=== PATIENT | female | born 1995 | race Caucasian/White ===

== ENCOUNTER 2020-05-03 12:15 | Inpatient (IN) | payer OTHER ==
[~2020-05-03] VITALS: Ht 159.8 cm; Wt 65.3 kg
[2020-05-03 13:05] LABS: COVID AG,FIA SOURCE NASOPHARYNGEAL
[2020-05-03 13:09] LABS: EOSINOPHILS % (AUTO) 0 % (1.0-6.0); HEMATOCRIT 34.6 % (36-46); HEMOGLOBIN 11.4 g/dL (12.0-16.0); LYMPHOCYTES # (AUTO) 0.9 K/uL (1.0-4.8); LYMPHOCYTES % (AUTO) 4.7 % (22.0-44.0); MEAN CORPUSCULAR HEMOGLOBIN 28.3 pg (26.0-34.0); MEAN CORPUSCULAR VOLUME 86 fL (80-100); MONOCYTES # (AUTO) 1.3 K/uL (0.1-1.0); MONOCYTES % (AUTO) 6.5 % (2.0-9.0); NEUTROPHILS # (AUTO) 17.2 K/uL (1.8-7.7); PLATELET COUNT (AUTO) 224 K/uL (150-450); RED BLOOD CELL COUNT(AUTO) 4.04 MIL/uL (4.00-5.20)
[2020-05-03 13:15] LABS: NEUTROPHILS % (AUTO) 88.8 % (40.0-70.0)
[2020-05-03 13:26] LABS: ANION GAP 7 mmol/L (8-16); CALCIUM, TOTAL 8.6 mg/dL (8.8-10.5); CARBON DIOXIDE 27 mmol/L (22-29); CHLORIDE 103 mmol/L (98-107); CREATININE 0.85 mg/dL (0.60-1.30); GLOMERULAR FILTR. RATE CALC > 60 mL/min (>60); GLUCOSE,RANDOM 98 mg/dL (70-110); POTASSIUM 4.5 mmol/L (3.5-5.1); SODIUM SERUM 137 mmol/L (136-145); UREA NITROGEN, BLOOD 18 mg/dL (7-18)
[2020-05-03 13:37] LABS: ABG A-A DIFF O2 125.2 mmHg (10-20.0); ABG CARBOXYHEMOGLOBIN 0.3 % (0.0-3.0); ABG HCO3 25.2 mmol/L (22.0-26.0); ABG METHEMOGLOBIN 0.1 % (0.0-1.5); ABG OXYGEN CONTENT 15.2 mL/dL (15.0-23.0); ABG OXYGEN SATURATION 89.8 % (95.0-98.0); ABG OXYHEMOGLOBIN 89.4 % (94.0-100.0); ABG PCO2 40 mmHg (35-45); ABG PH 7.422 (7.350-7.450); ABG TOTAL HEMOGLOBIN 12.1 G/dL (12.0-18.0); PO2, ARTERIAL BG 56.3 mmHg (80.0-100.0); SOURCE, BLOOD GAS ARTERIAL; TEMPERATURE, FAHRENHEIT, BG 98.6 FAHREN (96.0-98.6)
[2020-05-03 13:38] LABS: O2 DEVICE,BLOOD GAS CANNULA (ROOM AIR); SITE, BLOOD GAS RT RADIAL
[2020-05-03 13:38] LABS: ALANINE AMINOTRANSFERASE 23 U/L (12-78); ALBUMIN 3.2 g/dL (3.4-5.0); ALKALINE PHOSPHATASE 83 U/L (46-116); ASPARTATE AMINOTRANSFERASE 16 U/L (15-37); BILIRUBIN,TOTAL 0.3 mg/dL (0.1-1.0); C-REACTIVE PROTEIN QUANT 3.63 mg/dL (0.00-0.30); HCG,QUANTITATIVE 1 mIU/mL (0-6); LACTATE DEHYDROGENASE 255 U/L (81-234)
[2020-05-03 13:52] LABS: INFLUENZA TYPE A NEGATIVE FOR TYPE A (NEGATIVE); INFLUENZA TYPE B NEGATIVE FOR TYPE B (NEGATIVE)
[2020-05-03] MEDS ORDERED: DEXAMETHASONE SOD PHOS 4 MG/ML 5 ML VIAL IVP ONE (14:45)
[2020-05-03] MEDS ORDERED: AZITHROMYCIN 500 MG/NS 250 ML IV ONE (14:45)
[2020-05-03] MEDS ORDERED: ALBUTEROL SULFATE HFA 90 MCG/PUFF 8 GM INHALER IH ONE (14:45)
[2020-05-03] MEDS ORDERED: 0.9% SODIUM CHLORIDE 10 ML SYRINGE IVP PRN (15:15)
[2020-05-03] MEDS ORDERED: ONDANSETRON HCL 4 MG/2 ML VIAL IVP PRN ×2 (15:15→15:30)
[2020-05-03] MEDS ORDERED: ACETAMINOPHEN 325 MG TABLET PO PRN ×2 (15:15→15:30)
[2020-05-03] MEDS ORDERED: HEPARIN SODIUM,PORCINE 5,000 UNITS/ML VIAL IVP PRN (15:30)
[2020-05-03] MEDS ORDERED: BISACODYL 10 MG RECTAL RECTAL SUPPOSITORY PR PRN (15:30)
[2020-05-03] MEDS ORDERED: HYDROCODONE/ACETAMINOPHEN 5-325 MG TABLET PO PRN (15:30)
[2020-05-03] MEDS ORDERED: MAGNESIUM HYDROXIDE SUSPENSION 30 ML UDCUP PO PRN (15:30)
[2020-05-03] MEDS ORDERED: REMDESIVIR 200 MG in SODIUM CHLORIDE 0.9% 250 ML IV ONE (15:30)
[2020-05-03 16:19] LABS: BASOPHILS % (AUTO) 0.1 % (0.0-2.0); EOSINOPHILS % (AUTO) 0 % (1.0-6.0); HEMATOCRIT 32.4 % (36-46); HEMOGLOBIN 10.7 g/dL (12.0-16.0); LYMPHOCYTES # (AUTO) 0.8 K/uL (1.0-4.8); LYMPHOCYTES % (AUTO) 5.2 % (22.0-44.0); MEAN CORPUSCULAR HEMOGLOBIN 28.3 pg (26.0-34.0); MEAN CORPUSCULAR VOLUME 86 fL (80-100); MONOCYTES # (AUTO) 0.4 K/uL (0.1-1.0); MONOCYTES % (AUTO) 2.4 % (2.0-9.0); NEUTROPHILS # (AUTO) 14.7 K/uL (1.8-7.7); NEUTROPHILS % (AUTO) 92.3 % (40.0-70.0); PLATELET COUNT (AUTO) 211 K/uL (150-450); RED BLOOD CELL COUNT(AUTO) 3.78 MIL/uL (4.00-5.20)
[2020-05-03 16:36] LABS: PROTHROMBIN TIME 10.9 SEC (9.4-11.6)
[2020-05-03 17:05] LABS: C-REACTIVE PROTEIN QUANT 3.51 mg/dL (0.00-0.30)
[2020-05-03] MEDS ORDERED: OXYGEN THERAPY IH SCH (20:00)
[2020-05-03] MEDS: DOCUSATE SODIUM 100 MG CAPSULE PO SCH (21:37)
[2020-05-04] MEDS: MORPHINE SULFATE 2 MG/ML SYRINGE IVP PRN (01:54)
[2020-05-04 02:27] LABS: ABG A-A DIFF O2 496.3 mmHg (10-20.0); ABG CARBOXYHEMOGLOBIN 0.3 % (0.0-3.0); ABG HCO3 25.8 mmol/L (22.0-26.0); ABG METHEMOGLOBIN 0.3 % (0.0-1.5); ABG OXYGEN CONTENT 16.6 mL/dL (15.0-23.0); ABG OXYHEMOGLOBIN 98.4 % (94.0-100.0); ABG PCO2 32 mmHg (35-45); ABG PH 7.499 (7.350-7.450); ABG TOTAL HEMOGLOBIN 11.7 G/dL (12.0-18.0); PO2, ARTERIAL BG 184.9 mmHg (80.0-100.0); SOURCE, BLOOD GAS ARTERIAL; TEMPERATURE, FAHRENHEIT, BG 98.6 FAHREN (96.0-98.6)
[2020-05-04 02:28] LABS: O2 DEVICE,BLOOD GAS HFNC (ROOM AIR); SITE, BLOOD GAS LFT RADIAL
[2020-05-04] MEDS: HEPARIN SODIUM 25000 UNITS/D5W 250 ML IV PRN (03:58)
[2020-05-04 05:04] LABS: BASOPHILS % (AUTO) 0.1 % (0.0-2.0); EOSINOPHILS % (AUTO) 0 % (1.0-6.0); HEMATOCRIT 32.9 % (36-46); HEMOGLOBIN 10.7 g/dL (12.0-16.0); LYMPHOCYTES # (AUTO) 1.2 K/uL (1.0-4.8); LYMPHOCYTES % (AUTO) 9.1 % (22.0-44.0); MEAN CORPUSCULAR HGB CONC 32.5 G/dL (31.0-37.0); MEAN CORPUSCULAR VOLUME 86 fL (80-100); MONOCYTES # (AUTO) 0.9 K/uL (0.1-1.0); NEUTROPHILS % (AUTO) 83.8 % (40.0-70.0); PLATELET COUNT (AUTO) 211 K/uL (150-450); RED BLOOD CELL COUNT(AUTO) 3.82 MIL/uL (4.00-5.20); RED CELL DISTRIBUTION WIDTH 14.3 % (11.5-14.5)
[2020-05-04 05:17] LABS: D-DIMER 0.78 mg/L FEU (0.00-0.50)
[2020-05-04 05:56] LABS: ALANINE AMINOTRANSFERASE 21 U/L (12-78); ALBUMIN 2.8 g/dL (3.4-5.0); ALKALINE PHOSPHATASE 75 U/L (46-116); ANION GAP 6 mmol/L (8-16); ASPARTATE AMINOTRANSFERASE 16 U/L (15-37); BILIRUBIN,TOTAL 0.3 mg/dL (0.1-1.0); C-REACTIVE PROTEIN QUANT 4.27 mg/dL (0.00-0.30); CALCIUM, TOTAL 8.5 mg/dL (8.8-10.5); CARBON DIOXIDE 27 mmol/L (22-29); CHLORIDE 103 mmol/L (98-107); CREATININE 0.71 mg/dL (0.60-1.30); FERRITIN 204 ng/mL (8-252); GLOMERULAR FILTR. RATE CALC > 60 mL/min (>60); GLUCOSE,RANDOM 137 mg/dL (70-110); LACTATE DEHYDROGENASE 238 U/L (81-234); POTASSIUM 4.3 mmol/L (3.5-5.1); SODIUM SERUM 136 mmol/L (136-145); TOTAL PROTEIN, SERUM 7.2 g/dL (6.4-8.2); UREA NITROGEN, BLOOD 23 mg/dL (7-18)
[2020-05-04] MEDS: DOCUSATE SODIUM 100 MG CAPSULE PO SCH ×2 (09:00→22:52)
[2020-05-04] MEDS ORDERED: PANTOPRAZOLE SODIUM 40 MG DR TABLET PO SCH (09:00)
[2020-05-04] MEDS: DEXAMETHASONE SOD PHOS 4 MG/ML VIAL IVP SCH (09:40)
[2020-05-04 12:00] VITALS: BP 111/69
[2020-05-04 14:43] VITALS: BP 112/73
[2020-05-04 17:55] VITALS: BP 117/77
[2020-05-04 20:45] VITALS: BP 114/69
[2020-05-04] MEDS: REMDESIVIR 100 MG in SODIUM CHLORIDE 0.9% 250 ML IV SCH (22:51)
[2020-05-05 01:10] VITALS: BP 107/67
[2020-05-05] MEDS: HEPARIN SODIUM 25000 UNITS/D5W 250 ML IV PRN (03:43)
[2020-05-05] MEDS: MORPHINE SULFATE 2 MG/ML SYRINGE IVP PRN (03:49)
[2020-05-05 04:32] VITALS: BP 102/56
[2020-05-05 07:57] VITALS: BP 97/58
[2020-05-05 07:58] LABS: D-DIMER 0.93 mg/L FEU (0.00-0.50)
[2020-05-05] MEDS: DOCUSATE SODIUM 100 MG CAPSULE PO SCH ×2 (08:45→21:48)
[2020-05-05] MEDS: FAMOTIDINE 20 MG TABLET PO SCH ×2 (08:45→21:49)
[2020-05-05] MEDS: CHOLECALCIFEROL (VIT D3) 1,000 UNITS [25 MCG] TABLET PO SCH (08:45)
[2020-05-05] MEDS: ZINC SULFATE 220 MG CAPSULE PO SCH ×2 (08:45→21:49)
[2020-05-05] MEDS: DEXAMETHASONE SOD PHOS 4 MG/ML VIAL IVP SCH (08:45)
[2020-05-05] MEDS: ASCORBIC ACID 500 MG TABLET PO SCH ×2 (08:45→21:48)
[2020-05-05 09:08] LABS: ALANINE AMINOTRANSFERASE 57 U/L (12-78); ALBUMIN 2.5 g/dL (3.4-5.0); ALKALINE PHOSPHATASE 69 U/L (46-116); ANION GAP 9 mmol/L (8-16); ASPARTATE AMINOTRANSFERASE 27 U/L (15-37); BILIRUBIN,TOTAL 0.3 mg/dL (0.1-1.0); C-REACTIVE PROTEIN QUANT 2.03 mg/dL (0.00-0.30); CALCIUM, TOTAL 8.1 mg/dL (8.8-10.5); CARBON DIOXIDE 25 mmol/L (22-29); CHLORIDE 103 mmol/L (98-107); CREATININE 0.67 mg/dL (0.60-1.30); FERRITIN 254 ng/mL (8-252); GLOMERULAR FILTR. RATE CALC > 60 mL/min (>60); GLUCOSE,RANDOM 100 mg/dL (70-110); LACTATE DEHYDROGENASE 245 U/L (81-234); POTASSIUM 4.1 mmol/L (3.5-5.1); SODIUM SERUM 137 mmol/L (136-145); TOTAL PROTEIN, SERUM 6.7 g/dL (6.4-8.2); UREA NITROGEN, BLOOD 29 mg/dL (7-18)
[2020-05-05 12:19] VITALS: BP 90/51
[2020-05-05 16:00] VITALS: BP 90/59
[2020-05-05] MEDS ORDERED: SODIUM CHLORIDE 0.9% 250 ML IV ONE (17:28)
[2020-05-05] MEDS: REMDESIVIR 100 MG in SODIUM CHLORIDE 0.9% 250 ML IV SCH (18:12)
[2020-05-05 19:34] VITALS: BP 96/54
[2020-05-06 00:12] VITALS: BP 109/60
[2020-05-06] MEDS: ZOLPIDEM TARTRATE 5 MG TABLET PO PRN (00:23)
[2020-05-06 04:12] VITALS: BP 108/60
[2020-05-06 08:19] VITALS: BP 89/45
[2020-05-06 08:31] LABS: D-DIMER 0.78 mg/L FEU (0.00-0.50)
[2020-05-06 08:42] LABS: ALANINE AMINOTRANSFERASE 52 U/L (12-78); ALBUMIN 2.5 g/dL (3.4-5.0); ALKALINE PHOSPHATASE 68 U/L (46-116); ANION GAP 10 mmol/L (8-16); ASPARTATE AMINOTRANSFERASE 24 U/L (15-37); BILIRUBIN,TOTAL 0.3 mg/dL (0.1-1.0); C-REACTIVE PROTEIN QUANT 1.57 mg/dL (0.00-0.30); CALCIUM, TOTAL 8.1 mg/dL (8.8-10.5); CARBON DIOXIDE 27 mmol/L (22-29); CHLORIDE 103 mmol/L (98-107); CREATININE 0.72 mg/dL (0.60-1.30); FERRITIN 267 ng/mL (8-252); GLOMERULAR FILTR. RATE CALC > 60 mL/min (>60); GLUCOSE,RANDOM 82 mg/dL (70-110); LACTATE DEHYDROGENASE 244 U/L (81-234); POTASSIUM 3.9 mmol/L (3.5-5.1); SODIUM SERUM 140 mmol/L (136-145); TOTAL PROTEIN, SERUM 6.5 g/dL (6.4-8.2); UREA NITROGEN, BLOOD 22 mg/dL (7-18)
[2020-05-06] MEDS: FAMOTIDINE 20 MG TABLET PO SCH ×2 (08:51→20:00)
[2020-05-06] MEDS: ZINC SULFATE 220 MG CAPSULE PO SCH ×2 (08:51→20:01)
[2020-05-06] MEDS: DOCUSATE SODIUM 100 MG CAPSULE PO SCH ×2 (08:52→20:01)
[2020-05-06] MEDS: CHOLECALCIFEROL (VIT D3) 1,000 UNITS [25 MCG] TABLET PO SCH (08:52)
[2020-05-06] MEDS: DEXAMETHASONE SOD PHOS 4 MG/ML VIAL IVP SCH (08:52)
[2020-05-06] MEDS: ASCORBIC ACID 500 MG TABLET PO SCH ×2 (08:52→20:01)
[2020-05-06] MEDS: HEPARIN SODIUM 25000 UNITS/D5W 250 ML IV PRN (10:38)
[2020-05-06 11:39] VITALS: BP 110/50
[2020-05-06 16:16] VITALS: BP 100/62
[2020-05-06] MEDS: REMDESIVIR 100 MG in SODIUM CHLORIDE 0.9% 250 ML IV SCH (18:00)
[2020-05-06 20:25] VITALS: BP 95/60
[2020-05-07] VITALS (7 sets, daily range): BP systolic 95–108; BP diastolic 52–71
[2020-05-07] MEDS: ZOLPIDEM TARTRATE 5 MG TABLET PO PRN (01:24)
[2020-05-07] MEDS: HEPARIN SODIUM 25000 UNITS/D5W 250 ML IV PRN (04:52)
[2020-05-07 07:07] LABS: D-DIMER 0.68 mg/L FEU (0.00-0.50)
[2020-05-07 07:32] LABS: ALANINE AMINOTRANSFERASE 42 U/L (12-78); ALBUMIN 2.6 g/dL (3.4-5.0); ANION GAP 4 mmol/L (8-16); ASPARTATE AMINOTRANSFERASE 16 U/L (15-37); C-REACTIVE PROTEIN QUANT 2.33 mg/dL (0.00-0.30); CALCIUM, TOTAL 8.1 mg/dL (8.8-10.5); CARBON DIOXIDE 29 mmol/L (22-29); CHLORIDE 104 mmol/L (98-107); CREATININE 0.72 mg/dL (0.60-1.30); FERRITIN 230 ng/mL (8-252); GLOMERULAR FILTR. RATE CALC > 60 mL/min (>60); GLUCOSE,RANDOM 81 mg/dL (70-110); LACTATE DEHYDROGENASE 280 U/L (81-234); POTASSIUM 3.8 mmol/L (3.5-5.1); SODIUM SERUM 137 mmol/L (136-145); TOTAL PROTEIN, SERUM 6.6 g/dL (6.4-8.2); UREA NITROGEN, BLOOD 20 mg/dL (7-18)
[2020-05-07 08:13] LABS: ALKALINE PHOSPHATASE 71 U/L (46-116); BILIRUBIN,TOTAL 0.3 mg/dL (0.1-1.0)
[2020-05-07] MEDS: DOCUSATE SODIUM 100 MG CAPSULE PO SCH ×2 (08:15→20:16)
[2020-05-07] MEDS: ZINC SULFATE 220 MG CAPSULE PO SCH ×2 (08:15→20:16)
[2020-05-07] MEDS: FAMOTIDINE 20 MG TABLET PO SCH ×2 (08:16→20:16)
[2020-05-07] MEDS: CHOLECALCIFEROL (VIT D3) 1,000 UNITS [25 MCG] TABLET PO SCH (08:16)
[2020-05-07] MEDS: ASCORBIC ACID 500 MG TABLET PO SCH ×2 (08:16→20:16)
[2020-05-07] MEDS: DEXAMETHASONE SOD PHOS 4 MG/ML VIAL IVP SCH (08:17)
[2020-05-07] MEDS ORDERED: SODIUM CHLORIDE 0.9% 250 ML IV ONE (17:13)
[2020-05-07] MEDS: REMDESIVIR 100 MG in SODIUM CHLORIDE 0.9% 250 ML IV SCH (18:24)
[2020-05-07] MEDS: MELATONIN 5 MG TABLET PO SCH (21:30)
[2020-05-08 03:57] VITALS: BP 105/51
[2020-05-08] MEDS: HEPARIN SODIUM 25000 UNITS/D5W 250 ML IV PRN (06:42)
[2020-05-08] MEDS: DEXAMETHASONE SOD PHOS 4 MG/ML VIAL IVP SCH (08:18)
[2020-05-08] MEDS: CHOLECALCIFEROL (VIT D3) 1,000 UNITS [25 MCG] TABLET PO SCH (08:18)
[2020-05-08] MEDS: FAMOTIDINE 20 MG TABLET PO SCH ×2 (08:18→19:48)
[2020-05-08] MEDS: ASCORBIC ACID 500 MG TABLET PO SCH ×2 (08:18→19:48)
[2020-05-08] MEDS: ZINC SULFATE 220 MG CAPSULE PO SCH ×2 (08:18→19:48)
[2020-05-08] MEDS: DOCUSATE SODIUM 100 MG CAPSULE PO SCH ×2 (08:18→19:48)
[2020-05-08 08:29] VITALS: BP 98/48
[2020-05-08 13:58] VITALS: BP 117/72
[2020-05-08 16:19] VITALS: BP 97/53
[2020-05-08 19:40] VITALS: BP 96/45
[2020-05-08] MEDS: MELATONIN 5 MG TABLET PO SCH (19:48)
[2020-05-09] VITALS (7 sets, daily range): BP systolic 93–129; BP diastolic 45–60
[2020-05-09] MEDS: LORazepam 1 MG TABLET PO PRN ×2 (01:26→20:08)
[2020-05-09] MEDS: DOCUSATE SODIUM 100 MG CAPSULE PO SCH ×2 (08:39→20:09)
[2020-05-09] MEDS: DEXAMETHASONE SOD PHOS 4 MG/ML VIAL IVP SCH (08:39)
[2020-05-09] MEDS: FAMOTIDINE 20 MG TABLET PO SCH ×2 (08:39→20:08)
[2020-05-09] MEDS: ZINC SULFATE 220 MG CAPSULE PO SCH ×2 (08:40→20:08)
[2020-05-09] MEDS: CHOLECALCIFEROL (VIT D3) 1,000 UNITS [25 MCG] TABLET PO SCH (08:40)
[2020-05-09] MEDS: ASCORBIC ACID 500 MG TABLET PO SCH ×2 (08:40→20:08)
[2020-05-09] MEDS: HEPARIN SODIUM 25000 UNITS/D5W 250 ML IV PRN (16:08)
[2020-05-09] MEDS: MELATONIN 5 MG TABLET PO SCH (20:08)
[2020-05-10 04:11] VITALS: BP 105/58
[2020-05-10 07:41] LABS: BASOPHILS % (AUTO) 0.3 % (0.0-2.0); EOSINOPHILS % (AUTO) 3.8 % (1.0-6.0); HEMOGLOBIN 12.2 g/dL (12.0-16.0); LYMPHOCYTES # (AUTO) 2.6 K/uL (1.0-4.8); LYMPHOCYTES % (AUTO) 17.2 % (22.0-44.0); MEAN CORPUSCULAR HEMOGLOBIN 28.3 pg (26.0-34.0); MEAN CORPUSCULAR VOLUME 86 fL (80-100); MONOCYTES # (AUTO) 1.1 K/uL (0.1-1.0); MONOCYTES % (AUTO) 7.1 % (2.0-9.0); NEUTROPHILS # (AUTO) 10.6 K/uL (1.8-7.7); NEUTROPHILS % (AUTO) 71.6 % (40.0-70.0); PLATELET COUNT (AUTO) 330 K/uL (150-450); RED BLOOD CELL COUNT(AUTO) 4.33 MIL/uL (4.00-5.20)
[2020-05-10 07:51] VITALS: BP 98/57
[2020-05-10] MEDS: ZINC SULFATE 220 MG CAPSULE PO SCH ×2 (08:07→21:15)
[2020-05-10] MEDS: CHOLECALCIFEROL (VIT D3) 1,000 UNITS [25 MCG] TABLET PO SCH (08:07)
[2020-05-10] MEDS: DEXAMETHASONE SOD PHOS 4 MG/ML VIAL IVP SCH (08:07)
[2020-05-10] MEDS: FAMOTIDINE 20 MG TABLET PO SCH ×2 (08:07→21:15)
[2020-05-10] MEDS: DOCUSATE SODIUM 100 MG CAPSULE PO SCH ×2 (08:07→21:15)
[2020-05-10] MEDS: ASCORBIC ACID 500 MG TABLET PO SCH ×2 (08:07→21:15)
[2020-05-10 08:21] LABS: ALANINE AMINOTRANSFERASE 34 U/L (12-78); ALBUMIN 2.8 g/dL (3.4-5.0); ALKALINE PHOSPHATASE 85 U/L (46-116); ANION GAP 9 mmol/L (8-16); ASPARTATE AMINOTRANSFERASE 16 U/L (15-37); BILIRUBIN,TOTAL 0.6 mg/dL (0.1-1.0); C-REACTIVE PROTEIN QUANT 1.54 mg/dL (0.00-0.30); CALCIUM, TOTAL 8.7 mg/dL (8.8-10.5); CARBON DIOXIDE 24 mmol/L (22-29); CHLORIDE 100 mmol/L (98-107); CREATININE 0.82 mg/dL (0.60-1.30); GLOMERULAR FILTR. RATE CALC > 60 mL/min (>60); GLUCOSE,RANDOM 79 mg/dL (70-110); POTASSIUM 4.2 mmol/L (3.5-5.1); SODIUM SERUM 133 mmol/L (136-145); TOTAL PROTEIN, SERUM 6.9 g/dL (6.4-8.2); UREA NITROGEN, BLOOD 20 mg/dL (7-18)
[2020-05-10 11:00] LABS: ABG A-A DIFF O2 216.4 mmHg (10-20.0); ABG BASE EXCESS -1.6 mmol/L (-2.0-3.0); ABG HCO3 23.6 mmol/L (22.0-26.0); ABG METHEMOGLOBIN 0.1 % (0.0-1.5); ABG OXYGEN CONTENT 16.6 mL/dL (15.0-23.0); ABG OXYGEN SATURATION 92.4 % (95.0-98.0); ABG OXYHEMOGLOBIN 92.3 % (94.0-100.0); ABG PCO2 33 mmHg (35-45); ABG PH 7.455 (7.350-7.450); ABG TOTAL HEMOGLOBIN 12.8 G/dL (12.0-18.0); PO2, ARTERIAL BG 60.5 mmHg (80.0-100.0); SOURCE, BLOOD GAS ARTERIAL
[2020-05-10 11:24] VITALS: BP 99/54
[2020-05-10 12:18] LABS: O2 DEVICE,BLOOD GAS CANNULA (ROOM AIR); SITE, BLOOD GAS RT BRACHIAL
[2020-05-10 16:31] VITALS: BP 97/59
[2020-05-10 18:16] LABS: D-DIMER 0.54 mg/L FEU (0.00-0.50)
[2020-05-10 19:23] LABS: FERRITIN 193 ng/mL (8-252)
[2020-05-10 20:10] VITALS: BP 112/58
[2020-05-10] MEDS: HEPARIN SODIUM,PORCINE 5,000 UNITS/ML VIAL IVP PRN (21:13)
[2020-05-10] MEDS: MELATONIN 5 MG TABLET PO SCH (21:15)
[2020-05-10] MEDS: LORazepam 1 MG TABLET PO PRN (21:16)
[2020-05-11 00:39] VITALS: BP 95/59
[2020-05-11] MEDS: HEPARIN SODIUM 25000 UNITS/D5W 250 ML IV PRN (03:05)
[2020-05-11 05:05] VITALS: BP 97/62
[2020-05-11 07:29] VITALS: BP 96/52
[2020-05-11] MEDS: ZINC SULFATE 220 MG CAPSULE PO SCH ×2 (08:18→20:22)
[2020-05-11] MEDS: DOCUSATE SODIUM 100 MG CAPSULE PO SCH ×2 (08:19→20:22)
[2020-05-11] MEDS: CHOLECALCIFEROL (VIT D3) 1,000 UNITS [25 MCG] TABLET PO SCH (08:19)
[2020-05-11] MEDS: ASCORBIC ACID 500 MG TABLET PO SCH ×2 (08:19→20:22)
[2020-05-11] MEDS: FAMOTIDINE 20 MG TABLET PO SCH ×2 (08:20→20:22)
[2020-05-11] MEDS: DEXAMETHASONE SOD PHOS 4 MG/ML VIAL IVP SCH (08:20)
[2020-05-11 10:53] VITALS: BP 101/55
[2020-05-11] MEDS: FLUTICASONE PROPIONATE 50 MCG/SPRAY 16 GM NASAL SPRAY NASAL SCH ×2 (13:48→20:23)
[2020-05-11 16:06] VITALS: BP 121/64
[2020-05-11 20:00] VITALS: BP 122/60
[2020-05-11] MEDS: MELATONIN 5 MG TABLET PO SCH (20:22)
[2020-05-12] VITALS (7 sets, daily range): BP systolic 102–123; BP diastolic 52–72
[2020-05-12] MEDS: CHOLECALCIFEROL (VIT D3) 1,000 UNITS [25 MCG] TABLET PO SCH (07:36)
[2020-05-12] MEDS: ASCORBIC ACID 500 MG TABLET PO SCH ×2 (07:37→20:10)
[2020-05-12] MEDS: DEXAMETHASONE SOD PHOS 4 MG/ML VIAL IVP SCH (07:37)
[2020-05-12] MEDS: DOCUSATE SODIUM 100 MG CAPSULE PO SCH ×2 (07:37→20:10)
[2020-05-12] MEDS: FAMOTIDINE 20 MG TABLET PO SCH ×2 (07:37→20:10)
[2020-05-12] MEDS: FLUTICASONE PROPIONATE 50 MCG/SPRAY 16 GM NASAL SPRAY NASAL SCH ×2 (07:38→20:55)
[2020-05-12] MEDS: ZINC SULFATE 220 MG CAPSULE PO SCH ×2 (07:40→20:10)
[2020-05-12] MEDS: HEPARIN SODIUM 25000 UNITS/D5W 250 ML IV PRN (07:41)
[2020-05-12] MEDS: LORazepam 1 MG TABLET PO PRN (20:10)
[2020-05-12] MEDS: MELATONIN 5 MG TABLET PO SCH (20:10)
[2020-05-13] MEDS ORDERED: MAGNESIUM OXIDE 400 MG TABLET PO PRN (01:15)
[2020-05-13] MEDS ORDERED: MAGNESIUM SULFATE 2 GM/WATER 50 ML IV PRN (01:15)
[2020-05-13] MEDS ORDERED: MAGNESIUM SULFATE 4 GM/WATER 100 ML IV PRN (01:15)
[2020-05-13 05:23] VITALS: BP 106/56
[2020-05-13 06:52] LABS: ALBUMIN 2.8 g/dL (3.4-5.0); MAGNESIUM 1.9 mg/dL (1.80-2.40)
[2020-05-13 07:36] VITALS: BP 99/51
[2020-05-13] MEDS: DOCUSATE SODIUM 100 MG CAPSULE PO SCH ×3 (07:40→19:49)
[2020-05-13] MEDS: ASCORBIC ACID 500 MG TABLET PO SCH ×2 (07:40→19:49)
[2020-05-13] MEDS: CHOLECALCIFEROL (VIT D3) 1,000 UNITS [25 MCG] TABLET PO SCH (07:40)
[2020-05-13] MEDS: ZINC SULFATE 220 MG CAPSULE PO SCH ×2 (07:40→19:49)
[2020-05-13] MEDS: FAMOTIDINE 20 MG TABLET PO SCH ×2 (07:41→19:49)
[2020-05-13] MEDS: DEXAMETHASONE SOD PHOS 4 MG/ML VIAL IVP SCH (07:41)
[2020-05-13] MEDS: FLUTICASONE PROPIONATE 50 MCG/SPRAY 16 GM NASAL SPRAY NASAL SCH ×2 (07:54→19:51)
[2020-05-13 11:18] VITALS: BP 97/55
[2020-05-13 13:03] LABS: THYROID STIMULATING HORMONE 0.44 uIU/mL (0.36-3.74)
[2020-05-13 16:13] VITALS: BP 118/61
[2020-05-13 16:56] LABS: C-REACTIVE PROTEIN QUANT 0.27 mg/dL (0.00-0.30)
[2020-05-13] MEDS: HEPARIN SODIUM 25000 UNITS/D5W 250 ML IV PRN (17:51)
[2020-05-13] MEDS: LORazepam 1 MG TABLET PO PRN (19:49)
[2020-05-13] MEDS: MELATONIN 5 MG TABLET PO SCH (19:49)
[2020-05-13 20:00] VITALS: BP 122/73
[2020-05-14 00:37] VITALS: BP 106/62
[2020-05-14 05:06] VITALS: BP 112/54
[2020-05-14 07:55] VITALS: BP 102/61
[2020-05-14] MEDS: ZINC SULFATE 220 MG CAPSULE PO SCH ×2 (08:25→21:18)
[2020-05-14] MEDS: ASCORBIC ACID 500 MG TABLET PO SCH ×2 (08:25→21:18)
[2020-05-14] MEDS: CHOLECALCIFEROL (VIT D3) 1,000 UNITS [25 MCG] TABLET PO SCH (08:25)
[2020-05-14] MEDS: FAMOTIDINE 20 MG TABLET PO SCH ×2 (08:25→21:18)
[2020-05-14] MEDS: DEXAMETHASONE SOD PHOS 4 MG/ML VIAL IVP SCH (08:26)
[2020-05-14] MEDS: DOCUSATE SODIUM 100 MG CAPSULE PO SCH ×2 (08:28→21:18)
[2020-05-14] MEDS: FLUTICASONE PROPIONATE 50 MCG/SPRAY 16 GM NASAL SPRAY NASAL SCH ×2 (08:28→21:18)
[2020-05-14 11:10] VITALS: BP 106/58
[2020-05-14 15:37] VITALS: BP 114/56
[2020-05-14 20:30] VITALS: BP 115/70
[2020-05-14] MEDS: HEPARIN SODIUM 25000 UNITS/D5W 250 ML IV PRN (20:47)
[2020-05-14] MEDS: MELATONIN 5 MG TABLET PO SCH (21:18)
[2020-05-15 00:57] VITALS: BP 109/62
[2020-05-15 05:50] VITALS: BP 103/60
[2020-05-15 08:24] VITALS: BP 113/60
[2020-05-15] MEDS: CHOLECALCIFEROL (VIT D3) 1,000 UNITS [25 MCG] TABLET PO SCH (08:52)
[2020-05-15] MEDS: ZINC SULFATE 220 MG CAPSULE PO SCH ×2 (08:52→21:27)
[2020-05-15] MEDS: DEXAMETHASONE SOD PHOS 4 MG/ML VIAL IVP SCH (08:52)
[2020-05-15] MEDS: DOCUSATE SODIUM 100 MG CAPSULE PO SCH ×2 (08:52→21:00)
[2020-05-15] MEDS: ASCORBIC ACID 500 MG TABLET PO SCH ×2 (08:52→21:27)
[2020-05-15] MEDS: FAMOTIDINE 20 MG TABLET PO SCH ×2 (08:52→21:27)
[2020-05-15] MEDS: FLUTICASONE PROPIONATE 50 MCG/SPRAY 16 GM NASAL SPRAY NASAL SCH ×2 (08:53→21:28)
[2020-05-15 11:32] VITALS: BP 122/78
[2020-05-15 16:07] VITALS: BP 103/60
[2020-05-15 20:18] VITALS: BP 100/64
[2020-05-15] MEDS: MELATONIN 5 MG TABLET PO SCH (21:27)
[2020-05-16 00:19] VITALS: BP 114/55
[2020-05-16 05:37] VITALS: BP 105/64
[2020-05-16 07:36] VITALS: BP 98/59
[2020-05-16 07:46] LABS: BASOPHILS % (AUTO) 0.6 % (0.0-2.0); EOSINOPHILS % (AUTO) 0.3 % (1.0-6.0); HEMATOCRIT 35.7 % (36-46); HEMOGLOBIN 11.9 g/dL (12.0-16.0); LYMPHOCYTES # (AUTO) 3.8 K/uL (1.0-4.8); LYMPHOCYTES % (AUTO) 17.7 % (22.0-44.0); MEAN CORPUSCULAR HEMOGLOBIN 28.5 pg (26.0-34.0); MEAN CORPUSCULAR HGB CONC 33.2 G/dL (31.0-37.0); MEAN CORPUSCULAR VOLUME 86 fL (80-100); MONOCYTES # (AUTO) 1.2 K/uL (0.1-1.0); MONOCYTES % (AUTO) 5.8 % (2.0-9.0); NEUTROPHILS % (AUTO) 75.6 % (40.0-70.0); PLATELET COUNT (AUTO) 337 K/uL (150-450); RED BLOOD CELL COUNT(AUTO) 4.17 MIL/uL (4.00-5.20); RED CELL DISTRIBUTION WIDTH 14.8 % (11.5-14.5)
[2020-05-16] MEDS: FAMOTIDINE 20 MG TABLET PO SCH ×2 (08:01→21:14)
[2020-05-16] MEDS: ZINC SULFATE 220 MG CAPSULE PO SCH ×2 (08:01→21:14)
[2020-05-16] MEDS: CHOLECALCIFEROL (VIT D3) 1,000 UNITS [25 MCG] TABLET PO SCH (08:01)
[2020-05-16] MEDS: DEXAMETHASONE SOD PHOS 4 MG/ML VIAL IVP SCH (08:01)
[2020-05-16] MEDS: DOCUSATE SODIUM 100 MG CAPSULE PO SCH ×2 (08:01→21:14)
[2020-05-16] MEDS: ASCORBIC ACID 500 MG TABLET PO SCH ×2 (08:02→21:14)
[2020-05-16] MEDS: FLUTICASONE PROPIONATE 50 MCG/SPRAY 16 GM NASAL SPRAY NASAL SCH ×2 (08:02→21:16)
[2020-05-16 08:08] LABS: ALANINE AMINOTRANSFERASE 34 U/L (12-78); ALBUMIN 2.9 g/dL (3.4-5.0); ALKALINE PHOSPHATASE 77 U/L (46-116); ANION GAP 10 mmol/L (8-16); ASPARTATE AMINOTRANSFERASE 11 U/L (15-37); BILIRUBIN,TOTAL 0.3 mg/dL (0.1-1.0); CARBON DIOXIDE 25 mmol/L (22-29); CHLORIDE 100 mmol/L (98-107); CREATININE 0.65 mg/dL (0.60-1.30); GLOMERULAR FILTR. RATE CALC > 60 mL/min (>60); GLUCOSE,RANDOM 81 mg/dL (70-110); POTASSIUM 4.3 mmol/L (3.5-5.1); SODIUM SERUM 135 mmol/L (136-145); TOTAL PROTEIN, SERUM 6.9 g/dL (6.4-8.2); UREA NITROGEN, BLOOD 17 mg/dL (7-18)
[2020-05-16] MEDS: HEPARIN SODIUM,PORCINE 5,000 UNITS/ML VIAL IVP PRN (09:52)
[2020-05-16] MEDS: HEPARIN SODIUM 25000 UNITS/D5W 250 ML IV PRN (09:53)
[2020-05-16 11:15] VITALS: BP 104/74
[2020-05-16 15:41] VITALS: BP 108/63
[2020-05-16 17:36] VITALS: BP 112/77
[2020-05-16] MEDS: ZOLPIDEM TARTRATE 5 MG TABLET PO PRN (21:14)
[2020-05-16] MEDS: MELATONIN 5 MG TABLET PO SCH (21:14)
[2020-05-17 00:15] VITALS: BP 113/62
[2020-05-17] MEDS: HEPARIN SODIUM 25000 UNITS/D5W 250 ML IV PRN (01:28)
[2020-05-17 04:29] VITALS: BP 113/67
[2020-05-17 07:52] LABS: BASOPHILS % (AUTO) 0.1 % (0.0-2.0); EOSINOPHILS % (AUTO) 0.3 % (1.0-6.0); HEMATOCRIT 36.1 % (36-46); LYMPHOCYTES # (AUTO) 3.6 K/uL (1.0-4.8); LYMPHOCYTES % (AUTO) 17.3 % (22.0-44.0); MEAN CORPUSCULAR HEMOGLOBIN 28.8 pg (26.0-34.0); MEAN CORPUSCULAR HGB CONC 33.3 G/dL (31.0-37.0); MEAN CORPUSCULAR VOLUME 86 fL (80-100); MONOCYTES # (AUTO) 1.3 K/uL (0.1-1.0); MONOCYTES % (AUTO) 6.1 % (2.0-9.0); NEUTROPHILS # (AUTO) 15.9 K/uL (1.8-7.7); NEUTROPHILS % (AUTO) 76.2 % (40.0-70.0); PLATELET COUNT (AUTO) 303 K/uL (150-450); RED BLOOD CELL COUNT(AUTO) 4.18 MIL/uL (4.00-5.20); RED CELL DISTRIBUTION WIDTH 14.7 % (11.5-14.5)
[2020-05-17 08:23] VITALS: BP 111/60
[2020-05-17 08:25] LABS: ALANINE AMINOTRANSFERASE 42 U/L (12-78); ALBUMIN 3.1 g/dL (3.4-5.0); ALKALINE PHOSPHATASE 76 U/L (46-116); ANION GAP 9 mmol/L (8-16); ASPARTATE AMINOTRANSFERASE 15 U/L (15-37); BILIRUBIN,TOTAL 0.3 mg/dL (0.1-1.0); CALCIUM, TOTAL 9.1 mg/dL (8.8-10.5); CARBON DIOXIDE 26 mmol/L (22-29); CHLORIDE 100 mmol/L (98-107); CREATININE 0.73 mg/dL (0.60-1.30); GLOMERULAR FILTR. RATE CALC > 60 mL/min (>60); GLUCOSE,RANDOM 78 mg/dL (70-110); POTASSIUM 4.8 mmol/L (3.5-5.1); SODIUM SERUM 135 mmol/L (136-145); TOTAL PROTEIN, SERUM 7.1 g/dL (6.4-8.2); UREA NITROGEN, BLOOD 19 mg/dL (7-18)
[2020-05-17] MEDS: DOCUSATE SODIUM 100 MG CAPSULE PO SCH (08:57)
[2020-05-17] MEDS: CHOLECALCIFEROL (VIT D3) 1,000 UNITS [25 MCG] TABLET PO SCH (08:57)
[2020-05-17] MEDS: FAMOTIDINE 20 MG TABLET PO SCH (08:57)
[2020-05-17] MEDS: ZINC SULFATE 220 MG CAPSULE PO SCH (08:57)
[2020-05-17] MEDS: DEXAMETHASONE SOD PHOS 4 MG/ML VIAL IVP SCH (08:57)
[2020-05-17] MEDS: ASCORBIC ACID 500 MG TABLET PO SCH (08:57)
[2020-05-17] MEDS: FLUTICASONE PROPIONATE 50 MCG/SPRAY 16 GM NASAL SPRAY NASAL SCH (09:00)
[2020-05-17 16:30] VITALS: BP 112/56
== END 2020-05-17 17:56 | disposition home or self-care (01) | DRG 720 ==
LOC: EMS 12:22 → 5S 15:28 → AHU 05-04 06:03 → 5S 05-04 14:44 → 5N 05-04 20:30 → 6N 05-16 17:20
PROVIDERS: ADMIT Internal Medicine; ATTEND Internal Medicine
PROC: XW033E5 Introduction of Remdesivir Anti-infective into Peripheral Vein, Percutaneous Approach, New Technology Group 5 (ICD-10-PCS; principal; 2020-05-04)
DX: A41.89 Other specified sepsis (principal); U07.1 COVID-19; J80 Acute respiratory distress syndrome; J12.82 Pneumonia due to coronavirus disease 2019; D68.59 Other primary thrombophilia; E44.1 Mild protein-calorie malnutrition; D72.810 Lymphocytopenia; I44.1 Atrioventricular block, second degree; R74.02 Elevation of levels of lactic acid dehydrogenase [LDH]; E66.3 Overweight; R79.82 Elevated C-reactive protein (CRP); Z68.29 Body mass index [BMI] 29.0-29.9, adult
CPT/HCPCS: 36600; 82728; 82805; 83605; 83615; 83735; 84145; 84443; 85379; 86140; 87426; 87804; 93005; 93306; 99291; A9575; G0378; J0456; J1100; J1644; J2270; J2405; J3535; J7050; 36415-L1; 36415-TC; 71045-TC; 82803-TC; U0003

== ENCOUNTER 2022-08-08 02:50 | Emergency (ER) | payer OTHER ==
[~2022-08-08] VITALS: Ht 157.5 cm; Wt 77.3 kg
[2022-08-08 03:29] LABS: BASOPHILS % (AUTO) 0.5 % (0.0-2.0); EOSINOPHILS % (AUTO) 0.2 % (1.0-6.0); HEMATOCRIT 39.9 % (36-46); HEMOGLOBIN 13.4 g/dL (12.0-16.0); LYMPHOCYTES # (AUTO) 2.8 K/uL (1.0-4.8); LYMPHOCYTES % (AUTO) 19.9 % (22.0-44.0); MEAN CORPUSCULAR HGB CONC 33.5 G/dL (31.0-37.0); MEAN CORPUSCULAR VOLUME 84 fL (80-100); MONOCYTES # (AUTO) 0.6 K/uL (0.1-1.0); MONOCYTES % (AUTO) 4.1 % (2.0-9.0); NEUTROPHILS # (AUTO) 10.6 K/uL (1.8-7.7); NEUTROPHILS % (AUTO) 75.3 % (40.0-70.0); PLATELET COUNT (AUTO) 330 K/uL (150-450); RED BLOOD CELL COUNT(AUTO) 4.77 MIL/uL (4.00-5.20); RED CELL DISTRIBUTION WIDTH 14.2 % (11.5-14.5)
[2022-08-08 03:35] LABS: GLUCOSE,POINT OF CARE 78 MG/DL (70-110)
[2022-08-08 03:45] LABS: ANION GAP 10 mmol/L (8-16); CALCIUM, TOTAL 9.8 mg/dL (8.8-10.5); CARBON DIOXIDE 25 mmol/L (22-29); CHLORIDE 100 mmol/L (98-107); GLOMERULAR FILTR. RATE CALC > 60 mL/min (>60); GLUCOSE,RANDOM 87 mg/dL (70-110); POTASSIUM 3.8 mmol/L (3.5-5.1); SODIUM SERUM 135 mmol/L (136-145); UREA NITROGEN, BLOOD 18 mg/dL (7-18)
[2022-08-08] MEDS ORDERED: MAG HYDROX/AL HYDROX/SIMETH 30 ML SUSP UDCUP PO ONE (03:45)
[2022-08-08] MEDS ORDERED: KETOROLAC TROMETHAMINE 30 MG/ML VIAL IVP ONE (03:45)
[2022-08-08] MEDS ORDERED: ONDANSETRON HCL 4 MG/2 ML VIAL IVP ONE (03:45)
[2022-08-08] MEDS ORDERED: SODIUM CHLORIDE 0.9% 1,000 ML IV ONE (03:45)
[2022-08-08] MEDS ORDERED: FAMOTIDINE 10 MG/ML 2 ML VIAL IVP ONE (03:45)
[2022-08-08 03:57] LABS: ALANINE AMINOTRANSFERASE 34 U/L (12-78); ALBUMIN 4.4 g/dL (3.4-5.0); ALKALINE PHOSPHATASE 158 U/L (46-116); ASPARTATE AMINOTRANSFERASE 21 U/L (15-37); BILIRUBIN,TOTAL 0.5 mg/dL (0.1-1.0); HCG,QUANTITATIVE < 1 mIU/mL (0-6); LIPASE 166 U/L (73-393)
[2022-08-08] MEDS ORDERED: SODIUM CHLORIDE 0.9% 100 ML ONE (05:15)
[2022-08-08] MEDS ORDERED: IOHEXOL 350 MG/ML 100 ML VIAL ONE (05:15)
[2022-08-08] MEDS ORDERED: ONDA-104 PO (06:00)
[2022-08-08 06:16] VITALS: BP 115/55
== END 2022-08-08 06:21 | disposition home or self-care (01) ==
LOC: EMS 02:50
DX: R11.2 Nausea with vomiting, unspecified (principal); R10.33 Periumbilical pain; R06.02 Shortness of breath; Z79.899 Other long term (current) drug therapy
CPT/HCPCS: 99285; 74177; 96374; 71045; 96375; 96361; 80053; 82962; 83690; 83735; 84100; 84484; 84702; 85025; 93005; J3490; J1885; J2405; Q9967; J7030; J7050

== ENCOUNTER 2023-06-19 09:22 | Emergency (ER) | payer OTHER ==
[~2023-06-19] VITALS: Ht 157.5 cm; Wt 77.0 kg
[~2023-06-19 09:22] MED LIST: ONDA-104 PO
[2023-06-19 09:31] VITALS: TEMP 97.6
[2023-06-19] MEDS: MECLIZINE HCL 25 MG TABLET PO ONE (10:08)
[2023-06-19 10:09] LABS: BASOPHILS % (AUTO) 0.4 % (0.0-2.0); EOSINOPHILS % (AUTO) 0.5 % (1.0-6.0); HEMATOCRIT 34.2 % (36-46); HEMOGLOBIN 11.2 g/dL (12.0-16.0); LYMPHOCYTES # (AUTO) 2.7 K/uL (1.0-4.8); LYMPHOCYTES % (AUTO) 31.8 % (22.0-44.0); MEAN CORPUSCULAR HEMOGLOBIN 26.5 pg (26.0-34.0); MEAN CORPUSCULAR HGB CONC 32.7 G/dL (31.0-37.0); MEAN CORPUSCULAR VOLUME 81 fL (80-100); MONOCYTES # (AUTO) 0.5 K/uL (0.1-1.0); MONOCYTES % (AUTO) 5.4 % (2.0-9.0); NEUTROPHILS # (AUTO) 5.3 K/uL (1.8-7.7); NEUTROPHILS % (AUTO) 61.9 % (40.0-70.0); PLATELET COUNT (AUTO) 289 K/uL (150-450); RED BLOOD CELL COUNT(AUTO) 4.22 MIL/uL (4.00-5.20); RED CELL DISTRIBUTION WIDTH 15.1 % (11.5-14.5); WHITE BLOOD COUNT (AUTO) 8.5 K/uL (4.5-11.0)
[2023-06-19 10:21] LABS: ANION GAP 9 mmol/L (8-16); CALCIUM, TOTAL 9.2 mg/dL (8.8-10.5); CARBON DIOXIDE 28 mmol/L (22-29); CHLORIDE 103 mmol/L (98-107); GLOMERULAR FILTR. RATE CALC > 60 mL/min (>60); GLUCOSE,RANDOM 89 mg/dL (70-110); SODIUM SERUM 140 mmol/L (136-145); UREA NITROGEN, BLOOD 14 mg/dL (7-18)
[2023-06-19 10:33] LABS: HCG,QUANTITATIVE < 1 mIU/mL (0-6)
[2023-06-19] MEDS ORDERED: MECL-302 PO (10:39)
[2023-06-19 10:55] VITALS: BP 120/77; PULSE 72; RESP 16
== END 2023-06-19 11:25 | disposition home or self-care (01) ==
LOC: EMS 09:22
DX: R42 Dizziness and giddiness (principal)
CPT/HCPCS: 80048; 84702; 85025; 99283